=== PATIENT | female | born 1955 | race Caucasian/White ===

== ENCOUNTER 2017-06-13 00:59 | Emergency (ER) | payer BC ==
[2017-06-13 01:03] VITALS: BP 158/91
--- NOTE | 2017-06-13 01:13 | ED ---
Bite Injury/Animal - HPI Summary HPI Summary: Mar presents with tick bite on back for past 6 hours. She states she felt something fall onto her back when she was walking the dog this evening. She states she was checking her back tonight and noticed what he thought was a tick. She could not reach the area. no fever or rash. no pain. - History of Current Complaint Chief Complaint: EDAnimalBite Stated Complaint: TICK BITE Time Seen by Provider: 06/13/17 01:04 Pain Intensity: 0 - Allergies/Home Medications Allergies/Adverse Reactions: Allergies Allergy/AdvReac Type Severity Reaction Status Date / Time No Known Allergies Allergy Verified 06/13/17 01:03 PMH/Surg Hx/FS Hx/Imm Hx Endocrine/Hematology History: Denies: Hx Anticoagulant Therapy Cardiovascular History: Denies: Hx Pacemaker/ICD Musculoskeletal History: Denies: Hx Osteoporosis - Cancer History Hx Chemotherapy: No Hx Radiation Therapy: No Infectious Disease History: No Infectious Disease History: Denies: Traveled Outside the [place] in Last 30 Days - Family History Known Family History: Negative: Renal Disease - Social History Alcohol Use: Occasionally Substance Use Type: Reports: None Review of Systems Negative: Fever Negative: Chest Pain Negative: Shortness Of Breath Positive: Other - tick bite on back All Other Systems Reviewed And Are Negative: Yes Physical Exam Triage Information Reviewed: Yes Vital Signs On Initial Exam: Initial Vitals Temp Pulse Resp BP Pulse Ox 97.1 F 81 16 158/91 97 06/13/17 01:01 06/13/17 01:01 06/13/17 01:01 06/13/17 01:01 06/13/17 01:01 Vital Signs Reviewed: Yes Appearance: Positive: Well-Appearing Skin: Positive: Warm, Dry, Other - tick bite on back Head/Face: Positive: Normal Head/Face Inspection Eyes: Positive: Normal, Conjunctiva Clear Respiratory/Lung Sounds: Positive: Clear to Auscultation, Breath Sounds Present Cardiovascular: Positive: Normal, RRR Musculoskeletal: Positive: Normal Neurological: Positive: Normal Psychiatric: Positive: Normal Diagnostics - Vital Signs Vital Signs Temp Pulse Resp BP Pulse Ox 06/13/17 01:01 97.1 F 81 16 158/91 97 - Laboratory Lab Statement: Any lab studies that have been ordered have been reviewed, and results considered in the medical decision making process. Bite Injury Course/Dx - Course Course Of Treatment: 62F presents with tick bite on back for past 6 hours. She states she felt something fall onto her back when she was walking the dog this evening. She states she was checking her back tonight and noticed what he thought was a tick. She could not reach the area. on exam has tick on back. removed with tick twister. discussed since tick has not been present for greater than 24 hours and was not engorged will not treat for lyme. patient understand and agrees with plan. - Diagnoses Differential Diagnosis/HQI/PQRI: Positive: Other - tick, lyme Provider Diagnosis: Tick bite Discharge - Discharge Plan Condition: Good Disposition: HOME Patient Education Materials: Tick Bite (ED) Referrals: Tierney Bertrand MD [Primary Care Provider] - Additional Instructions: Return to ED if develop a rash or any new or worsening symptoms
== END 2017-06-13 01:22 | disposition home or self-care (01) ==
LOC: ED 00:59
DX: S20.469A Insect bite (nonvenomous) of unspecified back wall of thorax, initial encounter (principal); W57.XXXA Bitten or stung by nonvenomous insect and other nonvenomous arthropods, initial encounter; Y93.9 Activity, unspecified; Y92.9 Unspecified place or not applicable
CPT/HCPCS: 99281